=== PATIENT | male | born 1965 | race Caucasian/White ===

== ENCOUNTER 2017-12-03 18:19 | Inpatient (IN) | payer MEDICAID ==
[~2017-12-03] VITALS: Ht 185.4 cm; Wt 68.9 kg
--- NOTE | 2017-12-03 18:19 | NUR ---
[id number]: NAUSEA, VOMITING, ABDOMINAL PAIN X 20 MIN. NAD NOTED. RR EVEN AND UNLABORED. VSS. PENDING MD MORENO.
[2017-12-03] MEDS ORDERED: DICYCLOMINE HCL INJ 20 MG/2 ML AMPUL IM ONE ×2 (18:27→18:30)
[2017-12-03] MEDS ORDERED: KETOROLAC TROMETHAMINE 15 MG/ML VIAL ONE (18:28)
[2017-12-03] MEDS ORDERED: ONDANSETRON HCL/PF 4 MG/2 ML VIAL ONE ×2 (18:28→20:07)
[2017-12-03] MEDS ORDERED: IV NS 0.9% 1,000 ML BAG IV ONE ×2 (18:30→20:00)
[2017-12-03] MEDS ORDERED: ONDANSETRON HCL/PF 4 MG/2 ML VIAL IVP ONE ×2 (18:30→20:00)
[2017-12-03] MEDS ORDERED: KETOROLAC TROMETHAMINE INJ 30 MG/ML VIAL IV ONE ×2 (18:30→20:30)
--- NOTE | 2017-12-03 18:38 | NUR ---
Line started on L A/C g 18, blood drawn from line and sent to lab.
--- NOTE | 2017-12-03 18:39 | NUR ---
Pt medicated as ordered per Dr. Dallas
--- NOTE | 2017-12-03 18:43 | NUR ---
Note mauro in EDM - 12/03/17 at 1844 by RAMON [id number]: NAUSEA, VOMITING, ABDOMINAL PAIN X 20 MIN. NAD NOTED. RR EVEN AND UNLABORED. VSS. PENDING MD MORENO.
[2017-12-03 18:46] LABS: BASOPHILS % (AUTO) 0.4 % (0.0-2.0); EOSINOPHILS % (AUTO) 0.7 % (0.0-6.0); HEMATOCRIT 48 % (39-51); HEMOGLOBIN 15.5 g/dL (13.5-17.5); LYMPHOCYTES # (AUTO) 2.5 /CMM (0.8-4.8); LYMPHOCYTES % (AUTO) 22.5 % (20.0-44.0); MEAN CORPUSCULAR HEMOGLOBIN 29 PG (26.0-33.0); MEAN CORPUSCULAR HGB CONC 32 g/dl (31.0-36.0); MEAN CORPUSCULAR VOLUME 88 fL (80-96); MONOCYTES # (AUTO) 0.9 /CMM (0.1-1.30); MONOCYTES % (AUTO) 7.8 % (2.0-12.0); NEUTROPHILS # (AUTO) 7.8 /CMM (1.8-8.9); NEUTROPHILS % (AUTO) 68.6 % (43.0-81.0); PLATELET COUNT (AUTO) 334 /CMM (150-450); RDW COEFFICIENT OF VARIATION 16.3 (11.5-15.0); RED BLOOD CELL COUNT(AUTO) 5.43 MIL/uL (4.5-6.0); WHITE BLOOD COUNT (AUTO) 11.3 K/uL (4.3-11.0)
[2017-12-03 18:53] LABS: CALCIUM, SERUM 9.7 mg/dL (8.5-10.1); CREATININE 1.1 mg/dL (0.6-1.3); POTASSIUM 4.3 mmol/L (3.5-5.1)
--- NOTE | 2017-12-03 18:56 | NUR ---
REPORT RECEIVED FROM MERCEDEZ AGUILAR FOR NANCY.
[2017-12-03 18:59] LABS: ALBUMIN 3.9 g/dL (3.4-5.0); BILIRUBIN,DIRECT 0.1 mg/dL (0.0-0.2); BILIRUBIN,TOTAL 0.3 mg/dL (0.2-1.0); TOTAL PROTEIN, SERUM 8.6 g/dL (6.4-8.2)
[2017-12-03] MEDS ORDERED: HYDROMORPHONE INJ 2 MG/ML DISP.SYRIN IV ONE (20:00)
[2017-12-03] MEDS ORDERED: KETOROLAC TROMETHAMINE INJ 30 MG/ML VIAL ONE (20:07)
--- NOTE | 2017-12-03 20:10 | NUR ---
[facility]-2 FOR ACUTE PANCREATITIS, ADMITTING
[2017-12-03 20:30] VITALS: BP 176/85
--- NOTE | 2017-12-03 20:42 | NUR ---
REPORT GIVEN TO MERCEDEZ THRASHER FOR NANCY.
--- NOTE | 2017-12-03 20:45 | NUR ---
PT TRANSPORTED TO [facility] VIA STRETCHER WITH EMT. VSS.
--- NOTE | 2017-12-03 20:50 | NUR ---
ms/rn notes RECEIVE NEW ADMITTED PATIENT FROM ER ARRIVED ON A GURNEY, ALERT, ORIENTED X3, VERBALIZE SEVERE PAIN IN ABDOMEN, WITH DX OF PANCREATITIS, ELEVATED LIPASE,GUARDING GRIMACE, SKIN WARM TO TOUCH, IRRITABLE AND REPORTED HE WANTS TO SLEEP AND TAKE THE PAIN AWAY, MOUTH DRY. AND ASKING FOR WATER, INFORM THAT AWAITING FOR MD ORDER, VITAL SIGNS 176/85, PULSE 65, R- 20, TEMP 97.9 AND OXYGEN AT RA OF 94%. WILL MONITOR AND PROVIDE CARE, SKIN INTACT, ,OBSERVE FORCING HIMSELF TO THROW UP . INFORMED THER RISK AND BENEFIT.
[2017-12-03 21:05] VITALS: BP 176/85
[2017-12-03] MEDS ORDERED: HYDROCODONE/APAP 5/325MG 1 EACH TABLET PO PRN (21:30)
[2017-12-03] MEDS ORDERED: ACETAMINOPHEN 325 MG TABLET PO PRN (21:30)
[2017-12-03] MEDS ORDERED: ONDANSETRON HCL/PF 4 MG/2 ML VIAL IVP PRN (21:30)
[2017-12-03] MEDS ORDERED: HYDROCODONE/APAP 10/325MG 1 EA TABLET PO PRN (21:30)
[2017-12-03] MEDS ORDERED: Z GUARD REMEDY 2 OZ OINT TP PRN (21:30)
[2017-12-03] MEDS ORDERED: METOCLOPRAMIDE HCL 10 MG/2 ML VIAL IV PRN (21:30)
[2017-12-03] MEDS ORDERED: MAGNESIUM HYDROXIDE 30 ML UDC PO PRN (21:30)
[2017-12-03] MEDS ORDERED: MAG HYDROX/AL HYDROX/SIMETH 30 ML UDC PO PRN (21:30)
[2017-12-03] MEDS ORDERED: HYDROMORPHONE 1 MG/1 ML DISP.SYRIN IV PRN (21:30)
[2017-12-03] MEDS ORDERED: ZOLPIDEM TARTRATE 5 MG TABLET PO PRN (21:30)
[2017-12-03] MEDS: ENOXAPARIN SODIUM 40 MG/0.4 ML DISP.SYRIN SQ SCH (21:39)
[2017-12-03] MEDS ORDERED: HYDROMORPHONE INJ 2 MG/ML DISP.SYRIN IV PRN (22:00)
--- NOTE | 2017-12-03 23:53 | NUR ---
ms/rn notes patietn able to sleep after pain medication give, was able to drink fluids, and refuse to have iv fluids at this time,as does not want to be awaken at this time.
[2017-12-04] MEDS: IV NS 0.9% 1,000 ML IV PRN ×4 (00:13→22:41)
--- NOTE | 2017-12-04 02:33 | NUR ---
MS/RN NOTES PATIENT FORCE SELF TO VOMIT, VERBALIZE PAIN MEDICATION NOT EFFECTIVE, THAT NARCOTIC MEDICATION NOT EFFECTIVE AND REQUEST ANOTHER MEDICATION INSTEAD.
--- NOTE | 2017-12-04 02:44 | NUR ---
MS/RN\MD RESTREPO WAS INFORMED REGARDING PAIN NOT RELIEVE OF PAIN MEDICATION AND PREFER TO HAVE TORADOL INJ INSTEAD OF NARCOTIC MED, MD ORDER 30MG IVP ONE TIME ORDER ONLY.ORDER CARRIED OUT.
[2017-12-04] MEDS ORDERED: KETOROLAC TROMETHAMINE INJ 30 MG/ML VIAL IM PRN (03:00)
[2017-12-04] MEDS ORDERED: KETOROLAC TROMETHAMINE INJ 30 MG/ML VIAL IV PRN ×2 (03:00→10:30)
[2017-12-04] MEDS ORDERED: hydrALAZINE HCL 25 MG TABLET PO PRN (06:00)
--- NOTE | 2017-12-04 07:19 | NUR ---
321-2 ms/rn notes PATIENT IN BED, AWAKE, ALERT, X3, MONITORED FOR ABDOMINAL PAIN DURING THE NIGHT , ADMINISTERE 1X ORDER TORALDOL 0256. FORCED VOMITTING, REQUIRE ASSISTANCE AT ALL TIMES. WILL MONITOR. WILL ENDORSE TO AM RN FOR NANCY,
--- NOTE | 2017-12-04 07:30 | NUR ---
MSRN OPENING NOTES. PT RECEIVED A&0X3, AWAKE AND RESTING IN BED. PT TOLERATING ROOM AIR WITHOUT SOB. PT REPORTING 9/10 PAIN. REQUESTING ANALGESIA. PT REPORTS TAKING VIVETROL- WILL ADMIN TORADOL. PT WITH IVC AT L AC G#18 INTACT AND OPERATIONAL WITH IVF PER RX. PT BED IN LOWEST LOCKED POSITION WITH HANDRAILSX2 AND CALL ELL WITHIN REACH. PT BRIEFED ON TODAY'S POC BUT IS VERBALLY HOSTILE AND DISMISSIVE. WILL CONTINUE TO MONITOR
[2017-12-04 08:00] VITALS: BP 156/98
[2017-12-04 09:56] LABS: EOSINOPHILS % (AUTO) 0.1 % (0.0-6.0); HEMATOCRIT 45 % (39-51); HEMOGLOBIN 14.7 g/dL (13.5-17.5); LYMPHOCYTES # (AUTO) 0.9 /CMM (0.8-4.8); LYMPHOCYTES % (AUTO) 7.6 % (20.0-44.0); MEAN CORPUSCULAR HEMOGLOBIN 29 PG (26.0-33.0); MEAN CORPUSCULAR HGB CONC 33 g/dl (31.0-36.0); MEAN CORPUSCULAR VOLUME 88 fL (80-96); MONOCYTES # (AUTO) 0.5 /CMM (0.1-1.30); MONOCYTES % (AUTO) 4.4 % (2.0-12.0); NEUTROPHILS # (AUTO) 10.7 /CMM (1.8-8.9); NEUTROPHILS % (AUTO) 87.9 % (43.0-81.0); PLATELET COUNT (AUTO) 296 /CMM (150-450); RDW COEFFICIENT OF VARIATION 16.7 (11.5-15.0); RED BLOOD CELL COUNT(AUTO) 5.09 MIL/uL (4.5-6.0); WHITE BLOOD COUNT (AUTO) 12.2 K/uL (4.3-11.0)
[2017-12-04 10:10] LABS: CREATININE 0.8 mg/dL (0.6-1.3); MAGNESIUM 1.6 mg/dL (1.8-2.4); PHOSPHORUS 2.6 mg/dL (2.5-4.9)
[2017-12-04 10:23] LABS: THYROID STIMULATING HORMONE 0.274 uIU/mL (0.358-3.74)
[2017-12-04] MEDS ORDERED: LORAZEPAM INJ 2 MG/ML VIAL IV PRN (10:30)
[2017-12-04 16:00] VITALS: BP 152/94
[2017-12-04] MEDS ORDERED: hydrALAZINE HCL IV 20 MG VIAL IV PRN (17:00)
--- NOTE | 2017-12-04 18:56 | NUR ---
MSRN CLOSING NOTES. PT REMAINS A&0X3, TOLERATING ROOM AIR AND REPORTS CURRENT PAIN MANAGEMENT ADEQUATE AND PAIN AT 3/10. PT AGREEABLE TO CARE, POLITE AND ENGAGING. PT WITH IVC AT L AC INTACT AND OPERATIONAL . ALL DAY NURSE DUTIES ATTENDED TO AND PT IS WITHOUT CONCERN OR COMPLAINT AT THIS TIME.
--- NOTE | 2017-12-04 19:37 | NUR ---
MS RN NOTES Patient received in bed, asleep but easily arousable. Not in any type of distress. No SOB noted. Safety measures in place. Bed in lowest position with call light within reach. Will continue to monitor and assess patient.
[2017-12-04 20:00] VITALS: BP 156/85
[2017-12-04] MEDS: ENOXAPARIN SODIUM 40 MG/0.4 ML DISP.SYRIN SQ SCH (21:34)
--- NOTE | 2017-12-05 02:17 | NUR ---
MS RN NOTES Patient in bed, sleeping but easily aroused. No SOB noted. Not in any type of distress. No complaints of pain at this time. Safety measures in place. Bed in lowest position with call light within reach. Will continue to monitor patient.
[2017-12-05] MEDS: IV NS 0.9% 1,000 ML IV PRN (05:02)
--- NOTE | 2017-12-05 05:10 | NUR ---
MS RN - PRN NOTES BP 156/98 P 69 Not in any type of distress. Will endorse to oncoming shift nurse
--- NOTE | 2017-12-05 05:53 | NUR ---
MS RN - CLOSING NOTES Patient in bed, resting but easily aroused. Verbally responsive. No SOB noted. Not in any type of distress. No complaints of pain. IV on left AC #18g: patent and intact with NS 150ml/hr running. Labs in AM. Remained on NPO until further instructions. Anticipated needs provided and met. Safety measures in place. HOB slightly elevated. Bed in lowest position with bed alarm on and call light within reach. Will endorse to oncoming shift nurse
[2017-12-05 07:34] LABS: CALCIUM, SERUM 8.5 mg/dL (8.5-10.1); CREATININE 0.8 mg/dL (0.6-1.3); MAGNESIUM 1.7 mg/dL (1.8-2.4); PHOSPHORUS 2.1 mg/dL (2.5-4.9); POTASSIUM 3.6 mmol/L (3.5-5.1)
[2017-12-05 08:00] VITALS: BP 142/88
--- NOTE | 2017-12-05 08:25 | NUR ---
MS RN NOTES PATIENT IN BED, A/O X4 APPEARS AGITATED, SCREAMING LOUD HE WANTS TO EAT. PATIENT IS CURRENTLY NPO, ADMITTED ON 12/03/17 FOR PANCREATITIS. EDUCATED PATIENT ON DISEASE, RISK AND BENEFITS EXPLAINED, PATIENT STILL SCREAMING LOUD AND USING INAPPROPRIATE WORDS, THREATENED NURSE HE WILL WILL GO HOME AND LEAVE. SAFETY MEASURE IN PLACE. WILL CONT TO MONITOR.
--- NOTE | 2017-12-05 08:56 | NUR ---
LIPASE 225. PATIENT DENIES NAUSEA, VOMITING, NO C/O PAIN. NOTIFIED RABBLER DENNIS, PLACE PATIENT ON FULL LIQUIDS DIET.
[2017-12-05] MEDS ORDERED: IV NS 0.9% 1,000 ML IV PRN (09:40)
[2017-12-05] MEDS ORDERED: THIA100T13 PO (10:32)
[2017-12-05] MEDS ORDERED: FOLI1TAB16 PO (10:32)
[2017-12-05] MEDS ORDERED: LOSA25TA3 PO (10:32)
[2017-12-05] MEDS ORDERED: MAGNESIUM OXIDE 400 MG TABLET PO ONE (11:00)
[2017-12-05] MEDS ORDERED: POTASSIUM CHLORIDE 20 MEQ TAB.PRT.SR PO ONE (11:00)
[2017-12-05] MEDS ORDERED: K PHOS NEUTRAL 250 MG TABLET PO ONE (11:04)
--- NOTE | 2017-12-05 11:15 | NUR ---
POTASSIUM TABLET NON ADMINISTERED, CLARIFIED ORDERED WITH TOBY COBURN/PHARMACY. POTASSIUM LEVEL 3.6
--- NOTE | 2017-12-05 11:58 | NUR ---
MS RN DISCHARGED PATIENT HAS BEEN CLEARED FOR DISCHARGE HOME BY ANGELA GODFREY. VS REMAINS STABLE DENIES ABDOMINAL PAIN, NO EPISODE OF NAUSEA/VOMITING REMAINDER OF THE SHIFT. SKIN INTACT. IVC IN LEFT AC REMOVED. DISCHARGED INSTRUCTION GIVEN TO PATIENT, REVIEWED PRESCRIPTION, VERBALIZED UNDERSTANDING. BELONGINGS CHECKED AND SEND WITH THE PATIENT UPON DC. PATIENT LEFT HOSP IN STABLE CONDITION VIA PRIVATE CAR.
[2017-12-05 12:28] LABS: BASOPHILS # (AUTO) 0.1 /CMM (0.0-0.2); EOSINOPHILS % (AUTO) 1.3 % (0.0-6.0); HEMATOCRIT 44 % (39-51); HEMOGLOBIN 14.7 g/dL (13.5-17.5); LYMPHOCYTES # (AUTO) 1.5 /CMM (0.8-4.8); LYMPHOCYTES % (AUTO) 17.4 % (20.0-44.0); MEAN CORPUSCULAR HEMOGLOBIN 29 PG (26.0-33.0); MEAN CORPUSCULAR HGB CONC 33 g/dl (31.0-36.0); MEAN CORPUSCULAR VOLUME 86 fL (80-96); MONOCYTES # (AUTO) 0.7 /CMM (0.1-1.30); MONOCYTES % (AUTO) 8.5 % (2.0-12.0); NEUTROPHILS # (AUTO) 6.3 /CMM (1.8-8.9); NEUTROPHILS % (AUTO) 71.8 % (43.0-81.0); PLATELET COUNT (AUTO) 295 /CMM (150-450); RDW COEFFICIENT OF VARIATION 15.3 (11.5-15.0); RED BLOOD CELL COUNT(AUTO) 5.17 MIL/uL (4.5-6.0); WHITE BLOOD COUNT (AUTO) 8.7 K/uL (4.3-11.0)
== END 2017-12-05 11:50 | disposition home or self-care (01) | DRG 282 ==
LOC: ER 18:20 → MED 20:18
PROVIDERS: ADMIT Internal Medicine; ATTEND Internal Medicine
DX: K85.20 Alcohol induced acute pancreatitis without necrosis or infection (principal); F11.20 Opioid dependence, uncomplicated; I10 Essential (primary) hypertension; K21.9 Gastro-esophageal reflux disease without esophagitis; F17.210 Nicotine dependence, cigarettes, uncomplicated; F10.288 Alcohol dependence with other alcohol-induced disorder; Y90.0 Blood alcohol level of less than 20 mg/100 ml
CPT/HCPCS: 36415; 80048-TC; 80061-TC; 80076-TC; 82150-TC; 82746; 83540-TC; 83690-TC; 83735-TC; 84100-TC; 84443-TC; 85025-TC; 87081-TC; A4606; G0480; J0360; J0500; J1170; J1650; J1885; J2405; J7030; Z7610